=== PATIENT | male | born 1935 | race Hispanic/Latino ===

== ENCOUNTER 2019-03-08 09:12 | Emergency (ER) | payer MEDICARE, BC ==
[~2019-03-08] VITALS: Ht 167.6 cm; Wt 78.0 kg
--- OUTSIDE RECORDS SUMMARY | 2019-03-08 09:16 | XMS REPORT | Clinical Summary ---
Author Author [facility] Organization [facility] Address Unknown Phone Unavailable Care Team Providers Care Limousine Rental Clerk Name Role Phone Megan Pcaheco PCP Allergies Comments Active Allergy Reactions Severity Noted Date Metronidazole 01/06/2018 Penicillins Hives Medium 11/05/2011 Medications End Date Status Medication Sig Dispensed Refills Start Date Active aspirin-calcium carbonate Take 81 mg by 0 81 mg-300 mg calcium(777 mouth. mg) Tab Active furosemide (LASIX) 40 MG Take 40 mg by 0 tablet mouth. Active multivitamin,tx-minerals Take by 0 (VITAMINS AND MINERALS) mouth. Tab Active rbhmoogxma-pdTHCKVvv-thhw Take 40 mg by 0 iazid 40-5-12.5 mg Tab mouth. Active OMEGA-3 FATTY ACIDS ORAL Take by 0 mouth. Active carvedilol (COREG) 12.5 Take 12.5 mg 0 MG tabletIndications: 2 by mouth 2 tabs twice daily (two) times daily with breakfast and dinner. Active calcitriol (ROCALTROL) Take 0.25 mcg 0 0.25 MCG capsule by mouth every other day. Active sodium bicarbonate 650 MG Take 1 tablet 0 tablet by mouth 3 (three) times daily. Active ferrous sulfate 325 (65 Take 325 mg 0 FE) MG tablet by mouth daily with breakfast. Active calcium-vitamin D 250-100 Take 1 tablet 0 mg-unit per tablet by mouth 2 (two) times daily. Active pravastatin (PRAVACHOL) Take 1 tablet 0 40 MG tablet (40 mg total) 9 by mouth daily. 11/15/2019 Active NIFEdipine (ADALAT CC) 60 Take 1 tablet 30 tablet 0 MG 24 hr tablet (60 mg total) 9 by mouth daily. 11/13/2018 Discontinued glimepiride (AMARYL) 1 MG Take 1 mg by 0 tablet mouth. 11/13/2018 Discontinued SITagliptin (JANUVIA) 50 Take 50 mg by 0 MG tablet mouth. 8 11/13/2018 Discontinued METOPROLOL SUCCINATE ORAL Take by 0 mouth. 11/13/2018 Discontinued LISINOPRIL ORAL Take by 0 mouth. 11/13/2018 Discontinued nebivolol (BYSTOLIC) 10 Take 10 mg by 0 MG tablet mouth. 11/13/2018 Discontinued SITagliptin-metFORMIN Take by 0 (JANUMET) 50-1,000 mg per mouth. tablet 11/13/2018 Discontinued pravastatin (PRAVACHOL) Take 40 mg by 0 40 MG tablet mouth daily. 11/13/2018 Discontinued amLODIPine (NORVASC) 5 MG Take 5 mg by 0 tablet mouth daily. 11/13/2018 Discontinued olmesartan (BENICAR) 40 Take 40 mg by 0 MG tablet mouth daily. Status Hospital, Clinic, or Ordered Dose Route Frequency Start End Date Other Facility Date Administered Medication Ended epoetin mary 56955 Units SubQ Once 05/05/20 (EPOGEN,PROCRIT) 18 8 injection 20,000 UnitsIndications: anemia Ended epoetin mary 29975 Units SubQ Once 05/05/20 (EPOGEN,PROCRIT) 18 8 injection 10,000 UnitsIndications: anemia Ended epoetin mary 97498 Units SubQ Once 05/12/20 (EPOGEN,PROCRIT) 18 8 injection 20,000 UnitsIndications: anemia Ended epoetin mary 63400 Units SubQ Once 05/12/20 (EPOGEN,PROCRIT) 18 8 injection 10,000 UnitsIndications: anemia Ended epoetin mary 32416 Units SubQ Once 05/19/20 (EPOGEN,PROCRIT) 18 8 injection 20,000 UnitsIndications: anemia Ended epoetin mary 97180 Units SubQ Once 05/19/20 (EPOGEN,PROCRIT) 18 8 injection 10,000 UnitsIndications: anemia Ended epoetin mary 92506 Units SubQ Once 05/26/20 (EPOGEN,PROCRIT) 18 8 injection 20,000 UnitsIndications: anemia Ended epoetin mary 89935 Units SubQ Once 05/26/20 (EPOGEN,PROCRIT) 18 8 injection 10,000 UnitsIndications: anemia Ended epoetin mary 89154 Units SubQ Once 06/02/20 (EPOGEN,PROCRIT) 18 8 injection 20,000 UnitsIndications: anemia Ended epoetin mary 85781 Units SubQ Once 06/02/20 (EPOGEN,PROCRIT) 18 8 injection 10,000 UnitsIndications: anemia Ended epoetin mary 36363 Units SubQ Once 06/09/20 (EPOGEN,PROCRIT) 18 8 injection 20,000 UnitsIndications: anemia Ended epoetin mary 91191 Units SubQ Once 06/09/20 (EPOGEN,PROCRIT) 18 8 injection 10,000 UnitsIndications: anemia Ended epoetin mary 47837 Units SubQ Once 06/23/20 (EPOGEN,PROCRIT) 18 8 injection 10,000 UnitsIndications: anemia Ended epoetin mary 75260 Units SubQ Once 06/23/20 (EPOGEN,PROCRIT) 18 8 injection 20,000 UnitsIndications: anemia Ended epoetin mary 72238 Units SubQ Once 06/30/20 (EPOGEN,PROCRIT) 18 8 injection 10,000 UnitsIndications: anemia Ended epoetin mary 71208 Units SubQ Once 06/30/20 (EPOGEN,PROCRIT) 18 8 injection 20,000 UnitsIndications: anemia Ended epoetin mary 76579 Units SubQ Once 07/07/20 (EPOGEN,PROCRIT) 18 8 injection 10,000 UnitsIndications: anemia Ended epoetin mary 63342 Units SubQ Once 07/07/20 (EPOGEN,PROCRIT) 18 8 injection 20,000 UnitsIndications: anemia Ended epoetin mary 11931 Units SubQ Once 07/14/20 (EPOGEN,PROCRIT) 18 8 injection 20,000 UnitsIndications: anemia Ended epoetin mary 69394 Units SubQ Once 07/14/20 (EPOGEN,PROCRIT) 18 8 injection 10,000 UnitsIndications: anemia Ended epoetin mary 78116 Units SubQ Once 07/21/20 (EPOGEN,PROCRIT) 18 8 injection 20,000 UnitsIndications: anemia Ended epoetin mary 25517 Units SubQ Once 07/21/20 (EPOGEN,PROCRIT) 18 8 injection 10,000 UnitsIndications: anemia Ended epoetin mary 41650 Units SubQ Once 08/04/20 (EPOGEN,PROCRIT) 18 8 injection 20,000 UnitsIndications: anemia Ended epoetin mary 89871 Units SubQ Once 08/04/20 (EPOGEN,PROCRIT) 18 8 injection 10,000 UnitsIndications: anemia Ended epoetin mary 54383 Units SubQ Once 08/11/20 (EPOGEN,PROCRIT) 18 8 injection 20,000 UnitsIndications: anemia Ended epoetin mary 27892 Units SubQ Once 08/11/20 (EPOGEN,PROCRIT) 18 8 injection 10,000 UnitsIndications: anemia Ended epoetin mary 10714 Units SubQ Once 08/20/20 (EPOGEN,PROCRIT) 18 8 injection 10,000 UnitsIndications: anemia Ended epoetin mary 65031 Units SubQ Once 08/20/20 (EPOGEN,PROCRIT) 18 8 injection 20,000 UnitsIndications: anemia Active Problems Problem Noted Date SOB (shortness of breath) 11/12/2018 Severe anemia 11/12/2018 Symptomatic anemia 11/12/2018 Diabetes mellitus 11/12/2018 Hyperlipidemia 11/12/2018 Hypertension 11/12/2018 Anemia in stage 4 chronic kidney disease 06/02/2018 Encounters Care Team Description Date Type Specialty Chavo Mata MD Henderson, MD Sana Banks Alok, MD Symptomatic anemia (Primary Dx); Chronic kidney disease, unspecified CKD stage; Hypertensive urgency; Fatigue associated with anemia; Anemia in stage 4 chronic kidney disease (HCC) 02/10/2019 Emergency Oncology - 02/11/2019 02/10/2019 Travel 11/13/2018 Travel Ryan Ernandez MD Parhizgar, Alireza, MD Symptomatic anemia (Primary Dx); Severe anemia; Shortness of breath 11/12/2018 Emergency General Internal Medicine - 11/14/2018 11/12/2018 Travel Pb Foley MD 09/01/2018 Outside Orders Central Scheduling Chang Truong MD Marcus, Shannon, RN Anemia in stage 4 chronic kidney disease (HCC) (Primary Dx) 08/20/2018 Procedure visit Oncology Pb Foley MD Sector scotoma, bilateral (Primary Dx); Pain in eye, unspecified laterality; Esotropia 08/12/2018 Outside Orders Central Scheduling Pb Foley MD Sector scotoma, bilateral (Primary Dx); Pain in eye, unspecified laterality; Esotropia 08/12/2018 Outside Orders Central Scheduling Chang Truong MD Alexander, L R, RN Anemia in stage 4 chronic kidney disease (HCC) (Primary Dx) 08/11/2018 Procedure visit Oncology Chang Truong MD Alexander, L R RN Stage 4 chronic kidney disease (HCC) (Primary Dx) 08/04/2018 Procedure visit Oncology Chang Truong MD Marcus, Shannon, RN Anemia in stage 4 chronic kidney disease (HCC) (Primary Dx) 07/28/2018 Procedure visit Oncology Chang Truong MD Marcus, Shannon, RN Anemia in stage 4 chronic kidney disease (HCC) (Primary Dx) 07/21/2018 Procedure visit Oncology Chang Truong MD Alexander, L R, RN Anemia in stage 4 chronic kidney disease (HCC) (Primary Dx) 07/14/2018 Procedure visit Oncology Chang Truong MD Sud, Rachel L RN Anemia in stage 4 chronic kidney disease (HCC) (Primary Dx) 07/07/2018 Procedure visit Oncology Chang Truong MD Sud, Rachel L RN Anemia in stage 4 chronic kidney disease (HCC) (Primary Dx) 06/30/2018 Procedure visit Oncology Chang Truong MD Marcus, Shannon, RN Anemia in stage 4 chronic kidney disease (HCC) (Primary Dx) 06/23/2018 Procedure visit Oncology hCang Truong MD Sud, Rachel L RN Anemia in stage 4 chronic kidney disease (HCC) (Primary Dx) 06/16/2018 Procedure visit Oncology Chang Truong MD Alexander, L R RN Anemia in stage 4 chronic kidney disease (HCC) (Primary Dx) 06/09/2018 Procedure visit Oncology Chang Truong, Prisca Cosme RN Anemia in stage 4 chronic kidney disease (HCC) 06/02/2018 Procedure visit Oncology Chang Truong, Azra Gifford, JOSÉ MIGUEL Anemia due to stage 4 chronic kidney disease (HCC) (Primary Dx) 05/26/2018 Procedure visit Oncology Chang Truong, Azra Gifford RN Anemia, chronic renal failure, stage 3 (moderate) (Primary Dx) 05/19/2018 Procedure visit Oncology Chang Truong, Debbie Cardona RN Stage 4 chronic kidney disease (HCC) (Primary Dx) 05/12/2018 Procedure visit Oncology Chang Truong MD Alexander, L R, RN Stage 4 chronic kidney disease (HCC) (Primary Dx) 05/05/2018 Procedure visit Oncology after 03/07/2018 Family History Medical History Relation Name Comments No Known Problem Other Relation Name Status Comments Other Social History Date Tobacco Use Types Packs/Day Years Used Former Smoker Smokeless Tobacco: Never Used Alcohol Use Drinks/Week oz/Week Comments No Alcohol Habits Answer Date Recorded How often do you have a drink containing alcohol? Never 11/12/2018 How many drinks containing alcohol do you have on Not asked a typical day when you are drinking? How often do you have six or more drinks on one Not asked occasion? Sex Assigned at Date Recorded Not on file Industry Job Start Date Occupation Not on file Not on file Not on file Travel End Travel History Travel Start No recent travel history available. Last Filed Vital Signs Time Taken Vital Sign Reading 02/11/2019 12:05 PM CDT Blood Pressure 167/77 02/11/2019 12:05 PM CDT Pulse 65 02/11/2019 12:05 PM CDT Temperature 36.4 C (97.5 F) 02/11/2019 12:05 PM CDT Respiratory Rate 19 02/11/2019 12:05 PM CDT Oxygen Saturation 98% - Inhaled Oxygen - Concentration 02/10/2019 11:20 PM CDT Weight 92.9 kg (204 lb 11.2 oz) 02/10/2019 11:20 PM CDT Height 165.1 cm (5' 5") 02/10/2019 11:20 PM CDT Body Mass Index 34.06 Plan of Treatment Not on file Procedures Comments Procedure Name Priority Date/Time Associated Diagnosis TRANSFUSION SERVICE 02/14/2019 REPORT - SCAN 5:50 PM CDT TRANSFUSION SERVICE 02/13/2019 REPORT - SCAN 5:51 PM CDT PREPARE LEUKO-REDUCED RBC Routine 02/12/2019 11:54 PM CDT TRANSFUSION SERVICE 02/12/2019 REPORT - SCAN 5:51 PM CDT TRANSFUSION SERVICE 02/11/2019 REPORT - SCAN 6:01 PM CDT ANTIBODY IDENTIFICATION STAT 02/11/2019 1:47 PM CDT PREPARE RBC Routine 02/11/2019 1:32 PM CDT HEMOGLOBIN AND HEMATOCRIT Routine 02/11/2019 9:10 AM CDT TRANSFUSE LEUKO-REDUCED Routine 02/11/2019 RED BLOOD CELLS 4:06 AM CDT TYPE AND SCREEN, STAT 02/10/2019 AUTOMATED 9:56 PM CDT CBC W/PLT COUNT & AUTO STAT 02/10/2019 DIFFERENTIAL 7:52 PM CDT BASIC METABOLIC PANEL (7) STAT 02/10/2019 7:52 PM CDT CBC W/PLT COUNT & AUTO STAT 02/10/2019 DIFFERENTIAL 7:52 PM CDT TRANSFUSION SERVICE 11/15/2018 REPORT - SCAN 5:50 PM CDT PREPARE LEUKO-REDUCED RBC Routine 11/14/2018 11:54 PM CDT POCT-GLUCOSE METER Routine 11/14/2018 5:18 PM CDT POCT-GLUCOSE METER Routine 11/14/2018 1:00 PM CDT POCT-GLUCOSE METER Routine 11/14/2018 7:45 AM CDT POCT-GLUCOSE METER Routine 11/13/2018 8:58 PM CDT TRANSFUSION SERVICE 11/13/2018 REPORT - SCAN 5:52 PM CDT POCT-GLUCOSE METER Routine 11/13/2018 5:49 PM CDT ECG 12-LEAD ROYCE 11/13/2018 3:18 PM CDT POCT-GLUCOSE METER Routine 11/13/2018 12:08 PM CDT CBC W/PLT COUNT & AUTO Routine 11/13/2018 DIFFERENTIAL 11:13 AM CDT TSH/FREE T4 IF INDICATED Routine 11/13/2018 11:13 AM CDT CBC W/PLT COUNT & AUTO Routine 11/13/2018 DIFFERENTIAL 11:13 AM CDT HEMOGLOBIN A1C Routine 11/13/2018 11:13 AM CDT MAGNESIUM Routine 11/13/2018 11:13 AM CDT PHOSPHORUS Routine 11/13/2018 11:13 AM CDT CALCIUM, IONIZED Routine 11/13/2018 11:13 AM CDT BASIC METABOLIC PANEL (7) Routine 11/13/2018 11:13 AM CDT TRANSFUSE LEUKO-REDUCED Routine 11/13/2018 RED BLOOD CELLS 9:52 AM CDT POCT-GLUCOSE METER Routine 11/13/2018 6:41 AM CDT TRANSFUSE LEUKO-REDUCED Routine 11/13/2018 RED BLOOD CELLS 5:38 AM CDT POCT-GLUCOSE METER Routine 11/13/2018 12:17 AM CDT ABORH, MANUAL STAT 11/12/2018 5:25 PM CDT TYPE AND SCREEN, STAT 11/12/2018 AUTOMATED 5:03 PM CDT CBC W/PLT COUNT & AUTO STAT 11/12/2018 DIFFERENTIAL 2:44 PM CDT BASIC METABOLIC PANEL (7) STAT 11/12/2018 2:44 PM CDT CBC W/PLT COUNT & AUTO STAT 11/12/2018 DIFFERENTIAL 2:44 PM CDT POCT-HEMOGLOBIN Routine 08/20/2018 11:13 AM FILLING HAND POCT-HEMATOCRIT Routine 08/20/2018 11:13 AM FILLING HAND POCT-HEMOGLOBIN Routine 08/11/2018 9:59 AM FILLING HAND POCT-HEMATOCRIT Routine 08/11/2018 9:59 AM FILLING HAND IRON, TIBC, % SAT. Routine 08/04/2018 Stage 4 chronic kidney (WITHOUT FERRITIN) 9:38 AM FILLING HAND disease (HCC) FERRITIN Routine 08/04/2018 Stage 4 chronic kidney 9:38 AM FILLING HAND disease (HCC) POCT-HEMOGLOBIN Routine 08/04/2018 9:33 AM FILLING HAND POCT-HEMATOCRIT Routine 08/04/2018 9:33 AM FILLING HAND POCT-HEMOGLOBIN Routine 07/28/2018 11:20 AM FILLING HAND POCT-HEMATOCRIT Routine 07/28/2018 11:20 AM FILLING HAND POCT-HEMOGLOBIN Routine 07/21/2018 11:08 AM FILLING HAND POCT-HEMATOCRIT Routine 07/21/2018 11:08 AM FILLING HAND POCT-HEMOGLOBIN Routine 07/14/2018 10:54 AM FILLING HAND POCT-HEMATOCRIT Routine 07/14/2018 10:54 AM FILLING HAND POCT-HEMOGLOBIN Routine 07/07/2018 11:44 AM FILLING HAND POCT-HEMATOCRIT Routine 07/07/2018 11:44 AM FILLING HAND POCT-HEMOGLOBIN Routine 06/30/2018 12:31 PM FILLING HAND POCT-HEMATOCRIT Routine 06/30/2018 12:31 PM FILLING HAND FERRITIN Routine 06/30/2018 Anemia in stage 4 chronic 12:21 PM FILLING HAND kidney disease (HCC) IRON, TIBC, % SAT. Routine 06/30/2018 Anemia in stage 4 chronic (WITHOUT FERRITIN) 12:21 PM FILLING HAND kidney disease (HCC) POCT-HEMOGLOBIN Routine 06/30/2018 12:20 PM FILLING HAND POCT-HEMATOCRIT Routine 06/30/2018 12:20 PM FILLING HAND POCT-HEMOGLOBIN Routine 06/23/2018 1:14 PM CDT POCT-HEMATOCRIT Routine 06/23/2018 1:14 PM CDT POCT-HEMOGLOBIN Routine 06/16/2018 1:30 PM CDT POCT-HEMATOCRIT Routine 06/16/2018 1:30 PM CDT POCT-HEMOGLOBIN Routine 06/09/2018 1:24 PM CDT POCT-HEMATOCRIT Routine 06/09/2018 1:24 PM CDT FERRITIN Routine 06/02/2018 2:23 PM CDT IRON, TIBC, % SAT. Routine 06/02/2018 Anemia in stage 4 chronic (WITHOUT FERRITIN) 2:23 PM CDT kidney disease (HCC) POCT-HEMOGLOBIN Routine 06/02/2018 2:04 PM CDT POCT-HEMATOCRIT Routine 06/02/2018 2:04 PM CDT POCT-HEMOGLOBIN Routine 05/26/2018 1:16 PM CDT POCT-HEMATOCRIT Routine 05/26/2018 1:16 PM CDT POCT-HEMOGLOBIN Routine 05/19/2018 1:24 PM CDT POCT-HEMATOCRIT Routine 05/19/2018 1:24 PM CDT POCT-HEMOGLOBIN Routine 05/12/2018 1:13 PM CDT POCT-HEMATOCRIT Routine 05/12/2018 1:13 PM CDT POCT-HEMOGLOBIN Routine 05/05/2018 1:13 PM CDT POCT-HEMATOCRIT Routine 05/05/2018 1:13 PM CDT FERRITIN Routine 05/05/2018 1:13 PM CDT IRON, TIBC, % SAT. Routine 05/05/2018 Stage 4 chronic kidney (WITHOUT FERRITIN) 1:13 PM CDT disease (HCC) after 03/07/2018 Results * TRANSFUSION SERVICE REPORT - SCAN (02/14/2019 5:50 PM CDT) Only the most recent of 6 results within the time period is included. Narrative Performed At * Prepare Leuko-Red RBC (02/12/2019 11:54 PM CDT) Only the most recent of 2 results within the time period is included. Unit ABO O Pos [facility] [place] UNIT NUMBER [id number] [facility] [place] Status TX_TIMEINCHART [facility] Blood Bank Product RED BLOOD CELLS [facility] [place] PRODUCT CODE [id number] [facility] [place] CROSSMATCH COMPATIBLE [facility] Specimen Other Performing Organization Address City/[facility] Phone Number [facility] * Antibody identification (02/11/2019 1:47 PM CDT) ANTIBODY ID (DESI) Anti-E [facility] [place] Antibody Consult SIGNED OUTComment: Anti E [place] causes RBC injury, transfuse E negative RBCs.Electronic Signature: Darin Tabares M.D. Specimen Performing Organization Address City/[facility] Phone Number [facility] * Prepare RBC (02/11/2019 1:32 PM CDT) Unit ABO O Pos SAFETRACE [place] UNIT NUMBER [id number] [facility] Status WORK IN PROGRESS [facility] Blood Bank Product RED BLOOD CELLS [facility] [place] PRODUCT CODE [id number] SAFET[place] [place] CROSSMATCH COMPATIBLE [facility] [place] Performing Organization Address City/[facility] Phone Number [facility] [place] * Hemoglobin and hematocrit (02/11/2019 9:10 AM CDT) Hemoglobin 9.1 (L) 13.7 - 17.5 GM/DL [facility] Hematocrit 28.6 (L) 40.1 - 51.0 % [facility] Specimen Blood Performing Organization Address City/[facility] Phone Number [address] [address] [facility] * Transfuse Leuko-Red RBC (02/11/2019 4:06 AM CDT) Only the most recent of 5 results within the time period is included. * Type and screen, automated (02/10/2019 9:56 PM CDT) Only the most recent of 2 results within the time period is included. ABO/RH AUTOMATED (BEAKER) O POSITIVE [facility] Ab Scrn POSITIVEComment: echo [facility] Specimen Blood Performing Organization Address [facility] Phone Number [address] [address] [phone] [place] [address] * CBC with platelet count + automated diff (02/10/2019 7:52 PM CDT) Only the most recent of 3 results within the time period is included. WBC 4.8 3.5 - 10.5 K/L [facility] RBC 2.30 (L) 4.63 - 6.08 M/L [facility] Hemoglobin 7.6 (L) 13.7 - 17.5 GM/DL [facility] Hematocrit 23.7 (L) 40.1 - 51.0 % [facility] MCV 103.0 (H) 79.0 - 92.2 fL [facility] MCH 33.0 (H) 25.7 - 32.2 pg [facility] MCHC 32.1 (L) 32.3 - 36.5 GM/DL [facility] RDW 15.7 (H) 11.6 - 14.4 % [facility] Platelets 104 (L) 150 - 450 K/CU MM [facility] MPV 11.5 9.4 - 12.4 fL [facility] nRBC 0 0 - 0 /100 WBC [facility] % Neutros 66 % [facility] % Lymphs 21 % [facility] % Monos 9 % [facility] % Eos 3 % [facility] % Baso 0 % [facility] # Neutros 3.17 1.78 - 5.38 K/L [facility] # Lymphs 1.01 (L) 1.32 - 3.57 K/L [facility] # Monos 0.45 0.30 - 0.82 K/L [facility] # Eos 0.12 0.04 - 0.54 K/L [facility] # Baso 0.02 0.01 - 0.08 K/L [facility] Immature 1 0 - 1 % [facility] Granulocytes-Relative [facility] Specimen Blood Performing Organization Address City/State/Zipcode Phone Number [facility] [address] [place] [address] [facility] * Basic Metabolic Panel (02/10/2019 7:52 PM CDT) Only the most recent of 3 results within the time period is included. Sodium 140 136 - 145 meq/L [facility] Potassium 4.5 3.5 - 5.1 meq/L [facility] Chloride 114 (H) 98 - 107 meq/L [facility] CO2 18 (L) 22 - 29 meq/L [facility] BUN 68 (H) 7 - 21 mg/dL [facility] Creatinine 3.91 (H) 0.57 - 1.25 mg/dL [facility] Glucose 116 (H) 70 - 105 mg/dL [facility] Calcium 8.0 (L) 8.4 - 10.2 mg/dL [facility] EGFR 15Comment: ESTIMATED GFR IS mL/min/1.73 sq m [facility] NOT ACCURATE CREATININE [facility] CLEARANCE IN PREDICTING GLOMERULAR FILTRATION RATE. ESTIMATED GFR IS NOT APPLICABLE FOR DIALYSIS PATIENTS. Specimen Blood Performing Organization Address City/[facility] Phone Number [address] [address] [facility] * POC-Glucose meter (11/14/2018 5:18 PM CDT) Only the most recent of 8 results within the time period is included. POC-Glucose Meter 136 (H)Comment: TESTED AT 70 - 110 mg/dL [address] [address] Specimen Blood Performing Organization Address City/[facility] Phone Number [address] [address] [facility] * ECG 12 lead (11/13/2018 3:18 PM CDT) Specimen Narrative Performed At Ventricular Rate 59 BPM GE MUSE Atrial Rate 59 BPM P-R Interval 188 ms QRS Duration 88 ms Q-T Interval 432 ms QTC Calculation(Bazett) 427 ms P [place] 20 degrees R [place] -38 degrees T [place] 4 degrees Sinus bradycardia Left axis deviation Minimal voltage criteria for LVH, may be normal variant Abnormal ECG No previous ECGs available Confirmed by MD Satish, Edgar ([id number]) on 11/15/2018 12:53:35 PM Procedure Note Interface, External Ris In - 11/15/2018 12:53 PM CDT Ventricular Rate 59 BPM Atrial Rate 59 BPM P-R Interval 188 ms QRS Duration 88 ms Q-T Interval 432 ms QTC Calculation(Bazett) 427 ms P [place] 20 degrees R [place] -38 degrees T [place] 4 degrees Sinus bradycardia Left axis deviation Minimal voltage criteria for LVH, may be normal variant Abnormal ECG No previous ECGs available Confirmed by MD Satish, Edgar ([id number]) on 11/15/2018 12:53:35 PM Performing Organization Address City/[facility] Phone Number GE MUSE * TSH/Free T4 If Indicated (11/13/2018 11:13 AM CDT) TSH 3.88 0.35 - 4.94 uIU/mL [facility] Specimen Blood Performing Organization Address [facility] Phone Number [address] * Calcium, Ionized (11/13/2018 11:13 AM CDT) Calcium, Ion 1.03 (L) 1.12 - 1.27 mmol/L [facility] pH, Blood 7.35 [facility] Specimen Blood Performing Organization Address [facility] Phone Number [address] * Phosphorus (11/13/2018 11:13 AM CDT) Phosphorus 3.6 2.3 - 4.7 mg/dL [facility] Specimen Blood Performing Organization Address [facility] Phone Number [address] * Magnesium (11/13/2018 11:13 AM CDT) Magnesium 1.9 1.6 - 2.6 mg/dL [facility] Specimen Blood Performing Organization Address [facility] Phone Number [address] * Hemoglobin A1c (11/13/2018 11:13 AM CDT) Hemoglobin A1C 5.2 4.3 - 6.1 % [facility] Specimen Blood Performing Organization Address City/[facility] Phone Number [address] * stephanie PAIGE (11/12/2018 5:25 PM CDT) ABO Grouping O [facility] Rh Factor POS [facility] Specimen Blood Performing Organization Address [facility] Phone Number [address] * POCT-HEMATOCRIT (08/20/2018 11:13 AM FILLING HAND) Only the most recent of 17 results within the time period is included. POC-Hematocrit 24 (L)Comment: TESTED AT 40 - 50 % [place] [id number] Specimen Blood Performing Organization Address [facility] Phone Number [address] * POCT-HEMOGLOBIN (08/20/2018 11:13 AM FILLING HAND) Only the most recent of 17 results within the time period is included. POC-Hemoglobin 8.2 (L)Comment: TESTED AT 13.0 - 16.8 g/dL [place] [id number] AT [place] [address] Specimen Blood Performing Organization Address [facility] Phone Number [address] [address] [phone] [place] [address] * Iron, TIBC, % sat. (without ferritin) (08/04/2018 9:38 AM FILLING HAND) Only the most recent of 4 results within the time period is included. Iron 61.0 40.0 - 160.0 ug/dL [facility] TIBC 206 (L) 250 - 450 ug/dL [facility] Iron % Saturation 30 20 - 55 % [facility] Specimen Blood Performing Organization Address City/State/Zipcode Phone Number [facility] [address] [place] [address] [facility] * Ferritin (08/04/2018 9:38 AM FILLING HAND) Only the most recent of 4 results within the time period is included. Ferritin 163 5 - 275 ng/mL [facility] Specimen Blood Performing Organization Address City/[facility] [employer] Phone Number [facility] [address] [place] [address] [facility] after 03/07/2018 Insurance Payer Benefit Subscriber ID Type Phone Address Plan / Group MEDICARE MEDICARE A xxxxxxxxxxx Medicare B BLUE CROSS/BLUE SHIELD BCBS FED xxxxxxxxx PPO [phone] [address] [place] [address] Advance Directives For more information, please contact: [address] [address] Date Inactivated Comments Code Status Date Activated 02/11/2019 3:31 PM Full Code 02/10/2019 11:28 PM This code status was determined by: Patient 11/14/2018 8:31 PM Full Code 11/12/2018 8:35 PM This code status was determined by: Patient
--- OUTSIDE RECORDS SUMMARY | 2019-03-08 09:19 | XMS REPORT ---
Author Author [facility] Address Unknown Phone Unavailable Care Team Providers Care [employer] Supervisor Name Role Phone ANMOL CAMPO Unavailable Unavailable PARAM BRO Unavailable Unavailable Al TODD Unavailable Unavailable Problems This patient has no known problems. Allergies, Adverse Reactions, Alerts This patient has no known allergies or adverse reactions. Medications This patient has no known medications. Encounters Start Date/Time End Date/Time Encounter Type Admission Type Attending Clinicians [facility] Facility Care Department Encounter ID 2019-03-04 07:33:00 2019-03-03 13:10:00 Inpatient E [facility] [id number] Results Test Description Test Time Test Comments Text Results Atomic Results Result Comments HEMOGLOBIN AND HEMATOCRIT 2019-02-11 10:13:00 HEMOGLOBIN (BEAKER) (test jgzp=601) 9.1 GM/DL 13.7-17.5 HEMATOCRIT (BEAKER) (test yjkl=351) 28.6 % 40.1-51.0 BASIC METABOLIC [id number] 20:32:00* Test Item Value Reference Range Comments SODIUM (BEAKER) (test gtak=545) 140 meq/L 136-145 POTASSIUM (BEAKER) (test skpz=042) 4.5 meq/L 3.5-5.1 CHLORIDE (BEAKER) (test miiv=363) 114 meq/L 98-107 CO2 (BEAKER) (test joxe=639) 18 meq/L 22-29 BLOOD UREA NITROGEN (BEAKER) (test euvg=389) 68 mg/dL 7-21 CREATININE (BEAKER) (test ybmm=287) 3.91 mg/dL 0.57-1.25 GLUCOSE RANDOM (BEAKER) (test dioa=658) 116 mg/dL 70-105 CALCIUM (BEAKER) (test mtcb=100) 8.0 mg/dL 8.4-10.2 EGFR (BEAKER) (test mftu=2268) 15 mL/min/1.73 sq m ESTIMATED GFR IS NOT ACCURATE CREATININE CLEARANCE IN PREDICTING GLOMERULAR FILTRATION RATE. ESTIMATED GFR IS NOT APPLICABLE FOR DIALYSIS PATIENTS. CBC W/PLT COUNT & AUTO [id number] 20:07:00* Test Item Value Reference Range Comments WHITE BLOOD CELL COUNT (BEAKER) (test moyx=602) 4.8 K/ L 3.5-10.5 RED BLOOD CELL COUNT (BEAKER) (test nbqc=125) 2.30 M/ L 4.63-6.08 HEMOGLOBIN (BEAKER) (test nxzp=089) 7.6 GM/DL 13.7-17.5 HEMATOCRIT (BEAKER) (test daxa=741) 23.7 % 40.1-51.0 MEAN CORPUSCULAR VOLUME (BEAKER) (test vohg=069) 103.0 fL 79.0-92.2 MEAN CORPUSCULAR HEMOGLOBIN (BEAKER) (test xnke=882) 33.0 pg 25.7-32.2 MEAN CORPUSCULAR HEMOGLOBIN CONC (BEAKER) (test gpxs=472) 32.1 GM/DL 32.3-36.5 RED CELL DISTRIBUTION WIDTH (BEAKER) (test ntdx=566) 15.7 % 11.6-14.4 PLATELET COUNT (BEAKER) (test vhzx=900) 104 K/CU MM 150-450 MEAN PLATELET VOLUME (BEAKER) (test ouqy=819) 11.5 fL 9.4-12.4 NUCLEATED RED BLOOD CELLS (BEAKER) (test hyul=625) 0 /100 WBC 0-0 NEUTROPHILS RELATIVE PERCENT (BEAKER) (test fdik=594) 66 % LYMPHOCYTES RELATIVE PERCENT (BEAKER) (test tnvx=087) 21 % MONOCYTES RELATIVE PERCENT (BEAKER) (test fgpp=411) 9 % EOSINOPHILS RELATIVE PERCENT (BEAKER) (test vjks=785) 3 % BASOPHILS RELATIVE PERCENT (BEAKER) (test mjhe=602) 0 % NEUTROPHILS ABSOLUTE COUNT (BEAKER) (test umfz=477) 3.17 K/ L 1.78-5.38 LYMPHOCYTES ABSOLUTE COUNT (BEAKER) (test tgsl=986) 1.01 K/ L 1.32-3.57 MONOCYTES ABSOLUTE COUNT (BEAKER) (test ybnu=131) 0.45 K/ L 0.30-0.82 EOSINOPHILS ABSOLUTE COUNT (BEAKER) (test cdfy=391) 0.12 K/ L 0.04-0.54 BASOPHILS ABSOLUTE COUNT (BEAKER) (test yuac=283) 0.02 K/ L 0.01-0.08 IMMATURE GRANULOCYTES-RELATIVE PERCENT (BEAKER) (test wyyo=3911) 1 % 0-1 POCT-GLUCOSE [id number] 17:20:00* Test Item Value Reference Range Comments POC-GLUCOSE METER (BEAKER) (test avzi=4791) 136 mg/dL 70-110 TESTED AT [address] [address] POCT-GLUCOSE [id number] 13:02:00* Test Item Value Reference Range Comments POC-GLUCOSE METER (BEAKER) (test izar=3011) 145 mg/dL 70-110 TESTED AT [address] [address] POCT-GLUCOSE [id number] 07:54:00* Test Item Value Reference Range Comments POC-GLUCOSE METER (BEAKER) (test lpeo=1053) 86 mg/dL 70-110 TESTED AT [address] [address] POCT-GLUCOSE [id number] 21:12:00* Test Item Value Reference Range Comments POC-GLUCOSE METER (BEAKER) (test gyyu=1548) 126 mg/dL 70-110 TESTED AT [address] [address] POCT-GLUCOSE [id number] 17:57:00* Test Item Value Reference Range Comments POC-GLUCOSE METER (BEAKER) (test ikvc=6806) 98 mg/dL 70-110 TESTED AT [address] [address] HEMOGLOBIN [id number] 13:53:00* Test Item Value Reference Range Comments HEMOGLOBIN A1C (BEAKER) (test givc=457) 5.2 % 4.3-6.1 BASIC METABOLIC [id number] 12:26:00* Test Item Value Reference Range Comments SODIUM (BEAKER) (test tkmk=200) 139 meq/L 136-145 POTASSIUM (BEAKER) (test skwk=245) 4.9 meq/L 3.5-5.1 CHLORIDE (BEAKER) (test ccut=676) 111 meq/L 98-107 CO2 (BEAKER) (test puyl=028) 19 meq/L 22-29 BLOOD UREA NITROGEN (BEAKER) (test qztu=139) 52 mg/dL 7-21 CREATININE (BEAKER) (test csxo=727) 2.89 mg/dL 0.57-1.25 GLUCOSE RANDOM (BEAKER) (test wdfx=752) 88 mg/dL 70-105 CALCIUM (BEAKER) (test cnld=263) 8.8 mg/dL 8.4-10.2 EGFR (BEAKER) (test bzfm=9133) 21 mL/min/1.73 sq m ESTIMATED GFR IS NOT ACCURATE CREATININE CLEARANCE IN PREDICTING GLOMERULAR FILTRATION RATE. ESTIMATED GFR IS NOT APPLICABLE FOR DIALYSIS PATIENTS. TSH/FREE T4 IF [id number] 12:25:00* Test Item Value Reference Range Comments THYROID STIMULATING HORMONE (BEAKER) (test pfmx=107) 3.88 uIU/mL 0.35-4.94 CALCIUM, [id number] 12:19:00* Test Item Value Reference Range Comments CALCIUM IONIZED (BEAKER) (test mlwf=769) 1.03 mmol/L 1.12-1.27 PH, BLOOD (BEAKER) (test ttjn=9144) 7.35 POCT-GLUCOSE [id number] 12:18:00* Test Item Value Reference Range Comments POC-GLUCOSE METER (BEAKER) (test zqxn=7914) 104 mg/dL 70-110 TESTED AT [facility] [address] [facility] [address] [id number] 12:08:00* Test Item Value Reference Range Comments PHOSPHORUS (BEAKER) (test apvm=567) 3.6 mg/dL 2.3-4.7 [id number] 12:08:00* Test Item Value Reference Range Comments MAGNESIUM (BEAKER) (test kjcq=568) 1.9 mg/dL 1.6-2.6 CBC W/PLT COUNT & AUTO [id number] 11:36:00* Test Item Value Reference Range Comments WHITE BLOOD CELL COUNT (BEAKER) (test umzr=719) 5.2 K/ L 3.5-10.5 RED BLOOD CELL COUNT (BEAKER) (test yelk=191) 3.16 M/ L 4.63-6.08 HEMOGLOBIN (BEAKER) (test uomq=510) 9.8 GM/DL 13.7-17.5 HEMATOCRIT (BEAKER) (test ojba=841) 30.9 % 40.1-51.0 MEAN CORPUSCULAR VOLUME (BEAKER) (test diyr=564) 97.8 fL 79.0-92.2 MEAN CORPUSCULAR HEMOGLOBIN (BEAKER) (test oaul=245) 31.0 pg 25.7-32.2 MEAN CORPUSCULAR HEMOGLOBIN CONC (BEAKER) (test hrsy=756) 31.7 GM/DL 32.3-36.5 RED CELL DISTRIBUTION WIDTH (BEAKER) (test eayf=626) 15.6 % 11.6-14.4 PLATELET COUNT (BEAKER) (test klph=958) 110 K/CU MM 150-450 MEAN PLATELET VOLUME (BEAKER) (test qyby=234) 11.3 fL 9.4-12.4 NUCLEATED RED BLOOD CELLS (BEAKER) (test exqc=689) 0 /100 WBC 0-0 NEUTROPHILS RELATIVE PERCENT (BEAKER) (test bzyq=070) 72 % LYMPHOCYTES RELATIVE PERCENT (BEAKER) (test txql=179) 15 % MONOCYTES RELATIVE PERCENT (BEAKER) (test ixsb=243) 9 % EOSINOPHILS RELATIVE PERCENT (BEAKER) (test eooe=214) 3 % BASOPHILS RELATIVE PERCENT (BEAKER) (test jowp=752) 0 % NEUTROPHILS ABSOLUTE COUNT (BEAKER) (test fnxg=074) 3.72 K/ L 1.78-5.38 LYMPHOCYTES ABSOLUTE COUNT (BEAKER) (test vztw=131) 0.77 K/ L 1.32-3.57 MONOCYTES ABSOLUTE COUNT (BEAKER) (test zpva=224) 0.47 K/ L 0.30-0.82 EOSINOPHILS ABSOLUTE COUNT (BEAKER) (test ufsg=482) 0.14 K/ L 0.04-0.54 BASOPHILS ABSOLUTE COUNT (BEAKER) (test dtjb=673) 0.02 K/ L 0.01-0.08 IMMATURE GRANULOCYTES-RELATIVE PERCENT (BEAKER) (test yynw=8477) 1 % 0-1 POCT-GLUCOSE [id number] 06:43:00* Test Item Value Reference Range Comments POC-GLUCOSE METER (BEAKER) (test xglx=0602) 86 mg/dL 70-110 TESTED AT [facility] [address] [facility] [address] POCT-GLUCOSE [id number] 00:23:00* Test Item Value Reference Range Comments POC-GLUCOSE METER (BEAKER) (test rtju=4173) 95 mg/dL 70-110 TESTED AT [facility] [address] [facility] [address] BASIC METABOLIC [id number] 16:06:00* Test Item Value Reference Range Comments SODIUM (BEAKER) (test vbhe=113) 137 meq/L 136-145 POTASSIUM (BEAKER) (test ynhe=457) 4.5 meq/L 3.5-5.1 CHLORIDE (BEAKER) (test ztde=726) 112 meq/L 98-107 CO2 (BEAKER) (test cnkl=431) 18 meq/L 22-29 BLOOD UREA NITROGEN (BEAKER) (test jrbq=816) 56 mg/dL 7-21 CREATININE (BEAKER) (test lweu=932) 3.00 mg/dL 0.57-1.25 GLUCOSE RANDOM (BEAKER) (test rxnz=494) 118 mg/dL 70-105 CALCIUM (BEAKER) (test mmme=220) 8.4 mg/dL 8.4-10.2 EGFR (BEAKER) (test xrqf=4144) 20 mL/min/1.73 sq m ESTIMATED GFR IS NOT ACCURATE CREATININE CLEARANCE IN PREDICTING GLOMERULAR FILTRATION RATE. ESTIMATED GFR IS NOT APPLICABLE FOR DIALYSIS PATIENTS. CBC W/PLT COUNT & AUTO [id number] 15:48:00* Test Item Value Reference Range Comments WHITE BLOOD CELL COUNT (BEAKER) (test rjdv=761) 4.5 K/ L 3.5-10.5 RED BLOOD CELL COUNT (BEAKER) (test qrro=923) 2.21 M/ L 4.63-6.08 HEMOGLOBIN (BEAKER) (test wlsl=349) 7.0 GM/DL 13.7-17.5 HEMATOCRIT (BEAKER) (test furp=689) 22.4 % 40.1-51.0 MEAN CORPUSCULAR VOLUME (BEAKER) (test dulg=937) 101.4 fL 79.0-92.2 MEAN CORPUSCULAR HEMOGLOBIN (BEAKER) (test nepl=320) 31.7 pg 25.7-32.2 MEAN CORPUSCULAR HEMOGLOBIN CONC (BEAKER) (test kfxh=552) 31.3 GM/DL 32.3-36.5 RED CELL DISTRIBUTION WIDTH (BEAKER) (test nirn=284) 15.7 % 11.6-14.4 PLATELET COUNT (BEAKER) (test pmph=892) 107 K/CU MM 150-450 MEAN PLATELET VOLUME (BEAKER) (test dhgj=212) 11.6 fL 9.4-12.4 NUCLEATED RED BLOOD CELLS (BEAKER) (test eera=152) 0 /100 WBC 0-0 NEUTROPHILS RELATIVE PERCENT (BEAKER) (test pxul=423) 73 % LYMPHOCYTES RELATIVE PERCENT (BEAKER) (test cird=419) 16 % MONOCYTES RELATIVE PERCENT (BEAKER) (test rpie=910) 9 % EOSINOPHILS RELATIVE PERCENT (BEAKER) (test mnza=982) 2 % BASOPHILS RELATIVE PERCENT (BEAKER) (test yevu=384) 0 % NEUTROPHILS ABSOLUTE COUNT (BEAKER) (test slfv=613) 3.29 K/ L 1.78-5.38 LYMPHOCYTES ABSOLUTE COUNT (BEAKER) (test wvoy=840) 0.71 K/ L 1.32-3.57 MONOCYTES ABSOLUTE COUNT (BEAKER) (test bkfz=336) 0.39 K/ L 0.30-0.82 EOSINOPHILS ABSOLUTE COUNT (BEAKER) (test aeyt=942) 0.11 K/ L 0.04-0.54 BASOPHILS ABSOLUTE COUNT (BEAKER) (test alnh=538) 0.01 K/ L 0.01-0.08 IMMATURE GRANULOCYTES-RELATIVE PERCENT (BEAKER) (test vzgw=6631) 0 % 0-1 [id number] 11:19:00* Test Item Value Reference Range Comments POC-HEMATOCRIT (BEAKER) (test cehp=7436) 24 % 40-50 TESTED AT [place] [address] PUXE-[id number] 11:19:00* Test Item Value Reference Range Comments POC-HEMOGLOBIN (BEAKER) (test gznh=9353) 8.2 g/dL 13.0-16.8 TESTED AT [place] [id number] AT [place] [address] [id number] 10:03:00* Test Item Value Reference Range Comments POC-HEMATOCRIT (BEAKER) (test trdl=0846) 24 % 40-50 TESTED AT [place] [address] [id number] 10:03:00* Test Item Value Reference Range Comments POC-HEMOGLOBIN (BEAKER) (test buxd=3267) 8.2 g/dL 13.0-16.[address] TESTED [address] [address]HJWIEU AT [address] [address] [id number] 11:36:00* Test Item Value Reference Range Comments FERRITIN (BEAKER) (test hnuk=572) 163 ng/mL 5-275 IRON, TIBC, % SAT. (WITHOUT FERRITIN)2018-08-04 11:16:00* Test Item Value Reference Range Comments IRON (BEAKER) (test evgn=127) 61.0 ug/dL 40.0-160.0 TOTAL IRON BINDING CAPACITY (BEAKER) (test oeka=180) 206 ug/dL 250-450 IRON % SATURATION (2) (BEAKER) (test eefg=7338) 30 % 20-55 [id number]-[id number] 09:36:00* Test Item Value Reference Range Comments POC-HEMATOCRIT (BEAKER) (test mcjp=4481) 24 % 40-50 TESTED AT [place] [address] OFWR-[id number] 09:36:00* Test Item Value Reference Range Comments POC-HEMOGLOBIN (BEAKER) (test sdty=0128) 8.2 g/dL 13.0-16.8 TESTED AT [address] [address]HBZNAJ AT [address] [address] HYDI-[id number] 11:26:00* Test Item Value Reference Range Comments POC-HEMATOCRIT (BEAKER) (test pxwg=4792) 24 % 40-50 TESTED AT [address] [address] MYZE-[id number] 11:26:00* Test Item Value Reference Range Comments POC-HEMOGLOBIN (BEAKER) (test bdna=2192) 8.2 g/dL 13.0-16.8 TESTED AT [address] [address]DSICYI AT [place] [address] BQCX-[id number] 11:14:00* Test Item Value Reference Range Comments POC-HEMATOCRIT (BEAKER) (test pnkl=6033) 26 % 40-50 TESTED AT [place] [address] EXFD-[id number] 11:14:00* Test Item Value Reference Range Comments POC-HEMOGLOBIN (BEAKER) (test bbil=9691) 8.8 g/dL 13.0-16.8 TESTED AT [address] [address]HLTFXF AT [place] [address] AMLX-[id number] 11:05:00* Test Item Value Reference Range Comments POC-HEMATOCRIT (BEAKER) (test kgnv=4447) 25 % 40-50 TESTED AT [place] [address] DLEU-[id number] 11:05:00* Test Item Value Reference Range Comments POC-HEMOGLOBIN (BEAKER) (test msja=3636) 8.5 g/dL 13.0-16.8 TESTED AT [address] [address]SRFSER AT [place] [address] AIBZ-[id number] 11:49:00* Test Item Value Reference Range Comments POC-HEMATOCRIT (BEAKER) (test mrwb=9049) 29 % 40-50 TESTED AT [place] [address] BMEP-[id number] 11:49:00* Test Item Value Reference Range Comments POC-HEMOGLOBIN (BEAKER) (test hbdi=8754) 9.9 g/dL 13.0-16.8 TESTED AT [address] [address]CRHKD AT [place] [address] [id number] 15:20:00* Test Item Value Reference Range Comments FERRITIN (BEAKER) (test mcoh=799) 99 ng/mL 5-275 IRON, TIBC, % SAT. (WITHOUT FERRITIN)2018-06-30 14:59:00* Test Item Value Reference Range Comments IRON (BEAKER) (test trew=392) 42 ug/dL 40-160 TOTAL IRON BINDING CAPACITY (BEAKER) (test jkpj=653) 213 ug/dL 250-450 IRON % SATURATION (2) (BEAKER) (test kfbe=9450) 20 % 20-55 TINV-[id number] 12:38:00* Test Item Value Reference Range Comments POC-HEMATOCRIT (BEAKER) (test yipu=3734) 26 % 40-50 TESTED AT [address] [address] SEOE-[id number] 12:38:00* Test Item Value Reference Range Comments POC-HEMOGLOBIN (BEAKER) (test qqwc=4148) 8.8 g/dL 13.0-16.8 TESTED AT [address] [address]NT[address]JC AT [address] [address] XOAF-[id number] 12:26:00* Test Item Value Reference Range Comments POC-HEMATOCRIT (BEAKER) (test nmls=7722) 20 % 40-50 TESTED AT [address] [address] SXAU-[id number] 12:26:00* Test Item Value Reference Range Comments POC-HEMOGLOBIN (BEAKER) (test owwt=2823) 6.8 g/dL 13.0-16.8 TESTED AT [address] [address]BIRWYY AT [address] [address] KNXU-[id number] 13:21:00* Test Item Value Reference Range Comments POC-HEMATOCRIT (BEAKER) (test fcis=0103) 27 % 40-50 TESTED AT [address] [address] JGQT-[id number] 13:21:00* Test Item Value Reference Range Comments POC-HEMOGLOBIN (BEAKER) (test cgmu=4056) 9.2 g/dL 13.0-16.8 TESTED AT [address] [address]VAGDDN AT [address] [address] AXDJ-[id number] 13:34:00* Test Item Value Reference Range Comments POC-HEMATOCRIT (BEAKER) (test vgln=7109) 28 % 40-50 TESTED AT [place] [address] CZXI-[id number] 13:34:00* Test Item Value Reference Range Comments POC-HEMOGLOBIN (BEAKER) (test hqqw=4342) 9.5 g/dL 13.0-16.8 TESTED AT [place] [address] AT [place] [address] SBMQ-[id number] 13:27:00* Test Item Value Reference Range Comments POC-HEMATOCRIT (BEAKER) (test fqqv=0957) 27 % 40-50 TESTED AT [place] [address] MCLJ-[id number] 13:27:00* Test Item Value Reference Range Comments POC-HEMOGLOBIN (BEAKER) (test njmc=6618) 9.2 g/dL 13.0-16.8 TESTED AT [place] [address]TESTED AT [place] [address] IRON, TIBC, % SAT. (WITHOUT FERRITIN)2018-06-02 16:29:00* Test Item Value Reference Range Comments IRON (BEAKER) (test qwon=111) 50 ug/dL 40-160 TOTAL IRON BINDING CAPACITY (BEAKER) (test oxge=348) 206 ug/dL 250-450 IRON % SATURATION (2) (BEAKER) (test vloi=6830) 24 % 20-55 [id number] 16:11:00* Test Item Value Reference Range Comments FERRITIN (BEAKER) (test rujl=562) 102 ng/mL 5-275 TNGT-[id number] 14:10:00* Test Item Value Reference Range Comments POC-HEMATOCRIT (BEAKER) (test humu=3385) 25 % 40-50 TESTED AT [place] [address] ADGC-[id number] 14:10:00* Test Item Value Reference Range Comments POC-HEMOGLOBIN (BEAKER) (test musz=4573) 8.5 g/dL 13.0-16.8 TESTED AT [address] [address]TUXCUW AT [address] [address] XJRH-[id number] 13:20:00* Test Item Value Reference Range Comments POC-HEMATOCRIT (BEAKER) (test igeo=9689) 26 % 40-50 TESTED AT [address] [address] HEEN-[id number] 13:20:00* Test Item Value Reference Range Comments POC-HEMOGLOBIN (BEAKER) (test zwkw=7601) 8.8 g/dL 13.0-16.8 TESTED AT [address] [address]ZODFT AT [place] [address] WMIP-[id number] 13:28:00* Test Item Value Reference Range Comments POC-HEMATOCRIT (BEAKER) (test jazb=6988) 24 % 40-50 TESTED AT [place] [address] WWQF-[id number] 13:28:00* Test Item Value Reference Range Comments POC-HEMOGLOBIN (BEAKER) (test zrri=4031) 8.2 g/dL 13.0-16.8 TESTED AT [address] [address]BYKYIR AT [address] [address] AKYO-[id number] 13:17:00* Test Item Value Reference Range Comments POC-HEMATOCRIT (BEAKER) (test qsty=7766) 25 % 40-50 TESTED AT [address] [address] RLIJ-[id number] 13:17:00* Test Item Value Reference Range Comments POC-HEMOGLOBIN (BEAKER) (test rmhe=6012) 8.5 g/dL 13.0-16.8 TESTED AT [address] [address]MVXIUX AT [place] [address] [id number] 15:02:00* Test Item Value Reference Range Comments FERRITIN (BEAKER) (test jhjr=435) 211 ng/mL 5-275 IRON, TIBC, % SAT. (WITHOUT FERRITIN)2018-05-05 14:47:00* Test Item Value Reference Range Comments IRON (BEAKER) (test rury=673) 73 ug/dL 40-160 TOTAL IRON BINDING CAPACITY (BEAKER) (test yxap=295) 219 ug/dL 250-450 IRON % SATURATION (2) (BEAKER) (test sffn=3490) 33 % 20-55 GDZS-[id number] 13:18:00* Test Item Value Reference Range Comments POC-HEMATOCRIT (BEAKER) (test apks=9608) 24 % 40-50 TESTED AT [place] [address] QZWG-[id number] 13:18:00* Test Item Value Reference Range Comments POC-HEMOGLOBIN (BEAKER) (test hqfz=0533) 8.2 g/dL 13.0-16.8 TESTED AT [address] [address]FVSVLF AT [address] [address]
--- NOTE | 2019-03-08 10:18 | NUR ---
GIVEN RELEASE OF INFORMATION TO OBTAIN [facility] RECORDS REGARDING RECENT HOSPITALIZATION RELATED TO TODAYS CHIEF COMPLAINTS. PT/FM AGREE TO TRANSFER RECORDS.
[2019-03-08] MEDS ORDERED: MULTIPLE VITAM1 EAC2 PO (11:09)
[2019-03-08] MEDS ORDERED: JANUVIA100 MG PO (11:09)
[2019-03-08] MEDS ORDERED: CALCITRIOL0.25 MCG PO (11:09)
[2019-03-08] MEDS ORDERED: LASIX40 MG PO (11:09)
[2019-03-08] MEDS ORDERED: SODIUM BICARBO650 MG PO (11:09)
[2019-03-08] MEDS ORDERED: PROCRIT20000 UNIT IM (11:09)
[2019-03-08] MEDS ORDERED: NIFEDIPINE ER30 M1 PO (11:09)
[2019-03-08] MEDS ORDERED: CALCIUM 500+D1 EACH PO (11:09)
[2019-03-08] MEDS ORDERED: SODIUM ZIRCONIUM CYCLOSILICATE 10 GM PO (11:09)
[2019-03-08] MEDS ORDERED: IRON TABLETS PO (11:09)
[2019-03-08] MEDS ORDERED: ECOTRIN81 MG PO (11:09)
[2019-03-08] MEDS ORDERED: VASCEPA 1 GRAM PO (11:09)
[2019-03-08] MEDS ORDERED: CARVEDILOL12.5 MG PO (11:09)
[2019-03-08] MEDS ORDERED: BENICAR20 MG PO (11:09)
[2019-03-08] MEDS ORDERED: PRAVASTATIN SOD40 MG PO (11:09)
--- NOTE | 2019-03-08 11:20 | Diagnostic Imaging Report ---
ADDENDUM #1 Bones: Dedicated right shoulder radiographs show acute mildly displaced fractures of right proximal humerus and inferior glenoid. Signed by: Malou Rose MD on 03/08/2019 11:27 AM ORIGINAL REPORT EXAM: CT Chest WITHOUT intravenous contrast 03/08/2019 12:00 AM INDICATION: Chest pain, trauma COMPARISON: None TECHNIQUE: Chest was scanned utilizing a multidetector helical scanner from the lung apex through the level of the adrenal glands without administration of IV contrast. Coronal and sagittal reformations were obtained. Routine protocol was performed. IV CONTRAST: None. RADIATION DOSE: Total DLP: 709.32 mGy*cm. Dose modulation, iterative reconstruction, and/or weight based adjustment of the mA/kV was utilized to reduce the radiation dose to as low as reasonably achievable. COMPLICATIONS: None FINDINGS: LINES/ TUBES: None. LUNGS AND AIRWAYS: The central airways are patent. Mild bibasilar dependent subsegmental atelectasis. No focal consolidation or pulmonary edema. Scattered calcified and noncalcified micronodules. No suspicious pulmonary nodules. PLEURA: The pleural spaces are clear. HEART AND MEDIASTINUM: The thyroid gland is normal. No mediastinal, hilar or axillary lymphadenopathy. Mild cardiomegaly. There is no pericardial effusion. Atherosclerotic calcifications involve the coronary arteries and thoracic aorta. Small sliding hiatal hernia. UPPER ABDOMEN: Limited noncontrast views of the abdomen demonstrate no focal abnormality of the partially visualized liver, gallbladder, spleen, adrenal glands, or pancreas. Bilateral renal cysts measure up to 5.2 cm on the left and 2.4 cm on the right. Atherosclerotic calcifications involve the visualized abdominal aorta and major branches. Postoperative changes involve the distal stomach. BONES: Likely old right glenoid fracture and posttraumatic changes of the right humeral head on the superiormost images of this study. SOFT TISSUES: Unremarkable. IMPRESSION: No focal consolidation or pulmonary edema Likely old glenoid fracture and posttraumatic changes of the right humeral head, only partially visualized on the superior most images of this study. If there is concern for acute trauma, recommend dedicated shoulder radiographs. Mild cardiomegaly. Coronary atherosclerotic calcifications. Signed by: Malou Rose MD on 03/08/2019 11:17 AM
--- NOTE | 2019-03-08 11:29 | Diagnostic Imaging Report ---
Right Shoulder - 3 Views HISTORY: Trauma COMPARISON: None FINDINGS: There is a mildly displaced acute fracture of the proximal right humerus extending through the greater tuberosity. Displaced fracture also involves the inferior glenoid. No other fractures identified. The partially visualized right lung is well inflated without focal consolidation. Mild degenerative changes of the acromioclavicular joint. IMPRESSION: Acute mildly displaced fractures of the proximal right humerus extending through the greater tuberosity as well as of the inferior glenoid. Signed by: Malou Rose MD on 03/08/2019 11:26 AM
--- NOTE | 2019-03-08 11:36 | Diagnostic Imaging Report ---
Exam: Right knee radiographs-3 views Right ankle radiographs-3 views Date: 03/08/2019 Indication: trauma Comparisons: none FINDINGS: Right knee: No acute fracture or dislocation. There are severe tricompartmental degenerative changes with joint space narrowing, osteophyte formation, and subchondral cystic changes. There are numerous calcified intra-articular loose bodies, predominantly in the suprapatellar space. Moderate suprapatellar joint effusion. Atherosclerotic vascular calcifications. Right ankle: No acute fracture or dislocation. There is an old fracture of the midshaft right tibia with evidence of callus formation and bony bridging. The ankle mortise is intact and symmetric. No substantial ankle joint effusion. Mild Achilles enthesopathy. Small plantar calcaneal spur. Atherosclerotic vascular calcifications. IMPRESSION: No acute osseous injury of the right knee or right ankle. Severe tricompartmental degenerative changes of the right knee and numerous calcified intra-articular loose bodies. Moderate suprapatellar joint effusion. Old fracture of mid shaft of right tibia with evidence of callus formation and bony bridging. Signed by: Malou Rose MD on 03/08/2019 11:32 AM
== END 2019-03-08 11:00 | disposition home or self-care (01) ==
LOC: FSED 09:12
DX: S42.301A Unspecified fracture of shaft of humerus, right arm, initial encounter for closed fracture (principal); S20.211A Contusion of right front wall of thorax, initial encounter; S80.01XA Contusion of right knee, initial encounter; W18.30XA Fall on same level, unspecified, initial encounter; Y92.008 Other place in unspecified non-institutional (private) residence as the place of occurrence of the external cause; I10 Essential (primary) hypertension; E11.9 Type 2 diabetes mellitus without complications; E78.5 Hyperlipidemia, unspecified; Z85.46 Personal history of malignant neoplasm of prostate
CPT/HCPCS: 71250; 93005; 99284